=== PATIENT | male | born 1985 | race Caucasian/White ===

== ENCOUNTER → 2018-01-01 | Outpatient (CLI) | payer OTHER ==
[~2018-01-01] MED LIST: AMITRIPTYLINE H25 M2 PO; AMOXICILLIN/POTASSIU; ANTIVERT25 MG PO; ANUSOL1 EACH RC; ATIVAN1 MG; CYCLOBENZAPRINE; GABAPENTIN 100100 MG PO; LIDOCAINE 22 %/30 GM TOP; LOPRESSOR25 PO; MAXALT MLT ODT10 M1 PO; MOBIC7.5 MG PO; NORCO 5-325 TA1 EACH; ONDANSETRON HCL4 M2 PO; PROZAC; PROZAC20 MG PO; THYROID PO; TOPAMAX 25 MG T25 M1 PO; VICODIN; ZOFRAN
[2018-01-01 11:00] VITALS: BP 147/84
[2018-01-01 11:41] LABS: HEMATOCRIT 47.7 % (42.0-52.0); HEMOGLOBIN 16.3 gm/dL (14.0-18.0); MCH 33.1 pg (26.0-34.0); MCHC 34.1 g/dL (28.0-37.0); MCV 96.9 fL (80.0-100.0); RBC 4.93 mil/uL (4.50-6.00); RDW 11.9 % (10.5-14.5); WBC 6.8 thou/uL (4.0-11.0)
[2018-01-01 14:30] VITALS: BP 133/80
== END | disposition home or self-care (01) ==
LOC: OPONC 04:08
PROVIDERS: Family Medicine
DX: E83.119 Hemochromatosis, unspecified (principal); Z79.899 Other long term (current) drug therapy
CPT/HCPCS: 95100